=== PATIENT | male | born 1990 | race Caucasian/White ===

== ENCOUNTER 2025-02-26 07:26 | Emergency (ER) | payer BC, OTHER ==
[~2025-02-26] VITALS: Ht 170.2 cm; Wt 77.1 kg
[2025-02-26 07:38] VITALS: BP 150/97; TEMP 98.3; O2SAT 100
[2025-02-26] MEDS ORDERED: IBUP-1490 PO (09:49)
== END 2025-02-26 10:03 | disposition home or self-care (01) ==
LOC: ER 07:36
DX: S63.601A Unspecified sprain of right thumb, initial encounter (principal); G43.909 Migraine, unspecified, not intractable, without status migrainosus; X50.9XXA Other and unspecified overexertion or strenuous movements or postures, initial encounter; Y93.89 Activity, other specified; Y92.89 Other specified places as the place of occurrence of the external cause; Y99.8 Other external cause status
CPT/HCPCS: 73130-TC